=== PATIENT | female | born 1970 | race African-American/Black ===

== ENCOUNTER 2018-11-09 16:13 | Emergency (ER) | payer SELFPAY ==
[2018-11-09] MEDS ORDERED: Cyclobenzaprine 10 MG TAB ONE (18:34)
== END 2018-11-09 18:49 | disposition home or self-care (01) ==
LOC: ERS 16:13
DX: S46.811A Strain of other muscles, fascia and tendons at shoulder and upper arm level, right arm, initial encounter (principal); F32.9 Major depressive disorder, single episode, unspecified; X58.XXXA Exposure to other specified factors, initial encounter
CPT/HCPCS: 93005